=== PATIENT | male | born 1945 | race Caucasian/White ===

== ENCOUNTER 2021-03-24 17:43 | Inpatient (IN) | payer MEDICARE, MEDICAID ==
[~2021-03-24] VITALS: Ht 182.9 cm; Wt 59.6 kg
[2021-03-24] MEDS ORDERED: ACETAMINOPHEN 325MG TABLET PO ONE (18:45)
[2021-03-24 18:57] LABS: CHLORIDE 110 mEq/L (98-107)
[2021-03-24 18:59] LABS: BASOPHILS % 0.2 % (0.0-2.0); HEMATOCRIT. 37.9 % (42.0-52.0); HEMOGLOBIN. 13.2 g/dL (14.0-18.0); LYMPHOCYTES % 15.9 % (20.0-50.0); MONOCYTES % 6.4 % (2.0-8.0); NEUTROPHILS % 77.5 % (40.0-76.0); PLATELET 295 x1000/uL (130-400); RED BLOOD CELL COUNT 3.99 mill/uL (4.7-6.1); RED CELL DISTRIBUTION WIDTH 14.9 % (11.6-14.6)
[2021-03-24] MEDS ORDERED: SODIUM CHLORIDE 0.9% 1,000 ML IV ONE (19:30)
[2021-03-24] MEDS ORDERED: ZOLPIDEM TARTRATE 5MG TABLET PO PRN (22:45)
[2021-03-24] MEDS ORDERED: ONDANSETRON HCL 4MG/2ML INJ IV PRN (22:45)
[2021-03-24] MEDS ORDERED: CLONIDINE 0.1MG TABLET PO PRN (22:45)
[2021-03-24] MEDS ORDERED: DIPHENHYDRAMINE 50MG/ML VIAL IV PRN (22:45)
[2021-03-24] MEDS ORDERED: ACETAMINOPHEN 325MG TABLET PO PRN (22:45)
[2021-03-24] MEDS ORDERED: LEVOFLOXACIN 500MG PREMIX 100 ML IV SCH (23:00)
[2021-03-25] MEDS: DEXT 5%/0.45% NACL 1000ML 1,000 ML IV SCH ×2 (00:33→13:17)
[2021-03-25 09:30] LABS: BASOPHILS % 0.3 % (0.0-2.0); EOSINOPHILS % 0.1 % (0.0-5.0); HEMATOCRIT. 36.1 % (42.0-52.0); HEMOGLOBIN. 12.4 g/dL (14.0-18.0); LYMPHOCYTES % 17.5 % (20.0-50.0); MEAN CORPUSCULAR HEMOGLOBIN 32.6 pg (28.0-32.0); MONOCYTES % 6.7 % (2.0-8.0); NEUTROPHILS % 75.4 % (40.0-76.0); PLATELET 272 x1000/uL (130-400); RED CELL DISTRIBUTION WIDTH 14.7 % (11.6-14.6)
[2021-03-25 09:38] LABS: CHLORIDE 111 mEq/L (98-107)
[2021-03-25 09:44] LABS: PHOSPHORUS 2.1 mg/dL (2.5-4.9)
[2021-03-25] MEDS: ENOXAPARIN 40MG/0.4ML SYR SUBCUT SCH (13:16)
[2021-03-25] MEDS: ACETAMINOPHEN 325MG TABLET PO PRN (17:39)
[2021-03-25 22:00] VITALS: BP 130/76
[2021-03-25 22:30] VITALS: BP 130/76
[2021-03-26] VITALS (11 sets, daily range): BP systolic 106–138; BP diastolic 58–87
[2021-03-26] MEDS: ACETAMINOPHEN 325MG TABLET PO PRN ×4 (00:31→20:37)
[2021-03-26] MEDS: DEXT 5%/0.45% NACL 1000ML 1,000 ML IV SCH ×5 (04:08→22:34)
[2021-03-26] MEDS: ENOXAPARIN 40MG/0.4ML SYR SUBCUT SCH (08:30)
[2021-03-26] MEDS ORDERED: LOPERAMIDE HCL 2MG CAPSULE PO NR (14:15)
[2021-03-27] VITALS (12 sets, daily range): BP systolic 94–140; BP diastolic 48–89
[2021-03-27] MEDS: ACETAMINOPHEN 325MG TABLET PO PRN ×3 (02:38→22:31)
[2021-03-27] MEDS: DEXT 5%/0.45% NACL 1000ML 1,000 ML IV SCH ×3 (06:03→22:32)
[2021-03-27] MEDS: ENOXAPARIN 30MG/0.3ML SYR SUBCUT SCH (08:37)
[2021-03-28] VITALS (11 sets, daily range): BP systolic 98–123; BP diastolic 44–78
[2021-03-28] MEDS: DEXT 5%/0.45% NACL 1000ML 1,000 ML IV SCH (06:27)
[2021-03-28] MEDS: ENOXAPARIN 30MG/0.3ML SYR SUBCUT SCH (09:59)
[2021-03-28] MEDS: ACETAMINOPHEN 325MG TABLET PO PRN (12:50)
== END 2021-03-28 18:21 | DRG 640 ==
LOC: ER 17:43 → MICUSO 20:26 → 3WST 03-25 19:50
PROVIDERS: ADMIT Internal Medicine; ATTEND Internal Medicine
DX: E86.0 Dehydration (principal); N17.0 Acute kidney failure with tubular necrosis; E44.0 Moderate protein-calorie malnutrition; Z68.1 Body mass index [BMI] 19.9 or less, adult; B34.9 Viral infection, unspecified; Z20.822 Contact with and (suspected) exposure to COVID-19; F17.200 Nicotine dependence, unspecified, uncomplicated; M85.80 Other specified disorders of bone density and structure, unspecified site; Z59.0 Homelessness; Z86.73 Personal history of transient ischemic attack (TIA), and cerebral infarction without residual deficits; R10.9 Unspecified abdominal pain; J44.9 Chronic obstructive pulmonary disease, unspecified; E87.8 Other disorders of electrolyte and fluid balance, not elsewhere classified
CPT/HCPCS: 36415; 71045; 80053; 83735; 84100; 85025; 87426; 93005; 97162; 97166; 99285; J1650; J1956; J7030

== ENCOUNTER 2021-04-04 16:54 | Emergency (ER) | payer MEDICARE, MEDICAID ==
[~2021-04-04] VITALS: Ht 167.6 cm; Wt 70.0 kg
[2021-04-04] MEDS ORDERED: ACETAMINOPHEN WITH CODEINE 300/30MG TABLET PO NR (18:30)
[2021-04-04] MEDS ORDERED: ACETAMINOPHEN WITH CODEINE 300/30MG TABLET PO ONE (18:30)
[2021-04-04] MEDS ORDERED: T3 PO (19:56)
[2021-04-04 20:00] VITALS: BP 111/55
== END 2021-04-04 20:20 | disposition home or self-care (01) ==
LOC: ER 16:54
DX: M25.552 Pain in left hip (principal); M25.551 Pain in right hip; M85.88 Other specified disorders of bone density and structure, other site; Z96.643 Presence of artificial hip joint, bilateral; Z86.73 Personal history of transient ischemic attack (TIA), and cerebral infarction without residual deficits
CPT/HCPCS: 73522; 99283